=== PATIENT | female | born 1975 | race Caucasian/White ===

== ENCOUNTER → 2016-10-01 | Outpatient (CLI) | payer BC ==
--- NOTE | 2016-10-01 15:35 | CR ---
EXAMINATION: Two-view chest (PA and Lateral views). HISTORY: Shortness of breath. FINDINGS: The trachea is midline. The cardiomediastinal silhouette is within normal limits. No pulmonary infil trates, effusions or pneumothorax. Osseous structures appear unremarkable. IMPRESSION: No acute cardiopulmonary process.
== END ==
LOC: MW.CHFP 15:04
PROVIDERS: ATTEND Emergency Medicine
DX: R06.02 Shortness of breath (principal)
CPT/HCPCS: 71020; 71020-26; 93005

== ENCOUNTER → 2016-10-05 | Outpatient (CLI) | payer BC | LOC: MW.CHFP 08:03 | PROVIDERS: ATTEND Emergency Medicine | DX: E16.2 Hypoglycemia, unspecified (principal) | CPT/HCPCS: 36415; 82947; 83036 ==

== ENCOUNTER 2018-07-07 17:17 | Emergency (ER) | payer BC ==
--- NOTE | 2018-07-07 18:42 | EDM.PDOC ---
ED HPI GENERAL MEDICAL PROBLEM - General Chief Complaint: ENT Problem Stated Complaint: PAIN IN HEAD Time Seen by Provider: 07/07/18 19:00 Source of Information: Reports: Patient History Limitations: Reports: No Limitations - History of Present Illness INITIAL COMMENTS - FREE TEXT/NARRATIVE: HISTORY AND PHYSICAL: History of present illness: Patient is a 43-year-old female here with complaint of right sided facial pain. She states she was treated for sinusitis with azithromycin and a steroid which did not improve symptoms. She was started on levaquin today by her primary care provider. She states the pain was very severe today which prompted her to come to the ED. She has history of allergic rhinitis and sinusitis, has had congestion recently. States it started with her teeth aching on the right but today pain was radiated up her right head and felt like her ear drum was ready to pop. She does have a history of headaches on the right side due to a concussion but has never been this significant. states it brought her to tears today. She has been taking motrin without relief of symptoms. Review of systems: As per history of present illness and below otherwise all systems reviewed and negative. Past medical history: As per history of present illness and as reviewed below otherwise noncontributory. Surgical history: As per history of present illness and as reviewed below otherwise noncontributory. Social history: No reported history of drug or alcohol abuse. Family history: As per history of present illness and as reviewed below otherwise noncontributory. Physical exam: General: Patient sitting comfortably in no acute distress and nontoxic appearing HEENT: Pain to palpation of the right maxillary sinus. TMs clear bilaterally. Atraumatic, normocephalic, pupils reactive, negative for conjunctival pallor or scleral icterus, mucous membranes moist, throat clear, neck supple, nontender, trachea midline. No meningeal signs. Lungs: Clear to auscultation, breath sounds equal bilaterally, chest nontender. Heart: S1S2, regular, negative for clicks, rubs, or overt murmur. Abdomen: Soft, nondistended, nontender. Negative for masses or hepatosplenomegaly. Negative for costovertebral tenderness. Pelvis: Stable nontender. Genitourinary: Deferred. Rectal: Deferred. Extremities: Atraumatic, negative for cords or calf pain. Neurovascular unremarkable. Neuro: Awake, alert, oriented. Cranial nerves II through XII unremarkable. Cerebellum unremarkable. Motor and sensory unremarkable throughout. Exam nonfocal. Notes: Diagnostics: Head and sinus CT Therapeutics: Toradol 60mg IM Prescriptions: Tramadol (#12) Impression: Facial pain, possible trigeminal neuralgia Plan: 1. Alternate tylenol and motrin as needed. Take tramadol as needed for severe pain. 2. Follow up with primary care provider and neurology 3. Return to ED as needed as discussed Definitive disposition and diagnosis as appropriate pending reevaluation and review of above. Generalized Pain Score (Numeric/FACES): 6 - Related Data Allergies Allergy/AdvReac Type Severity Reaction Status Date / Time clarithromycin [From Biaxin] Allergy Rash Verified 07/07/18 17:35 morphine Allergy Hallucinati Verified 07/07/18 17:35 ons Penicillins Allergy Rash Verified 11/29/13 13:20 Home Meds: Home Meds Fexofenadine [Jennifer] 30 mg PO DAILY 11/29/13 [History] Fluticasone Propionate [Flonase] 16 gm NS DAILY 07/07/18 [History] Levofloxacin [Levaquin] 500 mg PO DAILY 07/07/18 [History] Sertraline HCl 1 tab DAILY 07/07/18 [History] traMADol [Ultram] 50 mg PO Q6H PRN #12 tab 07/07/18 [Rx] Past Medical History [employer] History: Reports: - Past Surgical History Female Surgical History: Reports: Section, Hysterectomy Musculoskeletal Surgical History: Reports: Other (See Below) Other Musculoskeletal Surgeries/Procedures:: ankle surgery Social & Family History - Family History Family Medical History: Noncontributory - Tobacco Use Smoking Status *Q: Never Smoker - Recreational Drug Use Recreational Drug Use: No ED ROS ENT - Review of Systems Review Of Systems: ROS reveals no pertinent complaints other than HPI. ED EXAM, ENT - Physical Exam Exam: See Below (see dictation) Course - Vital Signs Last Recorded V/S: Last Vital Signs Temp Pulse 78 07/07/18 17:32 Resp 18 07/07/18 17:32 BP 135/86 07/07/18 17:32 Pulse Ox 98 07/07/18 17:32 - Orders/Labs/Meds Meds: Medications Discontinued Medications Generic Name Dose Route Start Last Admin Trade Name Freq PRN Reason Stop Dose Admin Ketorolac Tromethamine 60 mg 02/08/19 19:30 07/07/18 19:53 Toradol IM 07/07/18 19:31 60 mg ONETIME ONE Administration Departure - Departure Time of Disposition: 20:06 Disposition: Home, Self-Care 01 Condition: Good Clinical Impression: Facial pain - Discharge Information Prescriptions: traMADol [Ultram] 50 mg PO Q6H PRN #12 tab PRN Reason: Pain (Severe 7-10) Referrals: PCP,Unknown [Primary Care Provider] - Natty Forrester MD [Physician] - 1 Week Forms: ED Department Discharge Additional Instructions: The following information is given to patients seen in the emergency department who are being discharged to home. This information is to outline your options for follow-up care. We provide all patients seen in our emergency department with a follow-up referral. The need for follow-up, as well as the timing and circumstances, are variable depending upon the specifics of your emergency department visit. If you don't have a primary care physician on staff, we will provide you with a referral. We always advise you to contact your personal physician following an emergency department visit to inform them of the circumstance of the visit and for follow-up with them and/or the need for any referrals to a consulting specialist. The emergency department will also refer you to a specialist when appropriate. This referral assures that you have the opportunity for follow-up care with a specialist. All of these measure are taken in an effort to provide you with optimal care, which includes your follow-up. Under all circumstances we always encourage you to contact your private physician who remains a resource for coordinating your care. When calling for follow-up care, please make the office aware that this follow-up is from your recent emergency room visit. If for any reason you are refused follow-up, please contact the [facility] at and asked to speak to the emergency department charge nurse. [facility] [address] [place] [address], [address] [place] [address] 1. Alternate tylenol and motrin as needed. Take tramadol as needed for severe pain. 2. Follow up with primary care provider and neurology 3. Return to ED as needed as discussed
[2018-07-07] MEDS ORDERED: Ketorolac 60 MG/2 ML SDV IM ONE (19:30)
--- NOTE | 2018-07-07 19:38 | CT ---
INDICATION: sinus pain CT HEAD WITHOUT CONTRAST TECHNIQUE: Multiple axial CT images were performed through the head without intravenous contrast administration. COMPARISON: No previous studies are currently available for comparison. FINDINGS: No acute intracranial hemorrhage is identified. No extra-axial collections are evident and there is no mass effect or midline shift. Ventricles are normal in size and configuration. Brain parenchyma appears normal with unremarkable banda-white differentiation. Osseous structures are within normal limits and no fractures are seen. Included portions of the paranasal sinuses and mastoid air cells are normally aerated. IMPRESSION: Normal non-contrast head CT. HERNANDEZ BESS MD [facility] Dictated by: Huber Bess MD @ 07/07/2018 19:37:10 (Electronically Signed)
--- NOTE | 2018-07-07 19:57 | CT ---
INDICATION: Sinus pain. TECHNIQUE: CT sinus without contrast. COMPARISON: None. FINDINGS: Paranasal sinuses: Well developed and clear. No fluid or mucosal thickening. The ostiomeatal units are patent. The fovea ethmoidalis and orbital salas are intact. The nasal septum is midline and intact. The nasal turbinates are normal. Orbits and globes: Unremarkable. Visualized intracranial contents: Unremarkable. Soft tissues: Unremarkable. IMPRESSION: Unremarkable CT of the sinuses. No evidence of sinusitis. Please note that all CT scans at this facility use dose modulation, iterative reconstruction, and/or weight-based dosing when appropriate to reduce radiation dose to as low as reasonably achievable. Dictated by Armond Greco MD @ Jul 07 2018 7:49PM Signed by Dr. Armond Greco @ Jul 07 2018 7:56PM
== END 2018-07-07 20:36 | disposition home or self-care (01) ==
LOC: MW.ED 17:17
DX: R51 Headache (principal); Z88.8 Allergy status to other drugs, medicaments and biological substances; Z88.0 Allergy status to penicillin; Z79.899 Other long term (current) drug therapy
CPT/HCPCS: 70450; 70486; 96372; 99283; J1885